=== PATIENT | male | born 1995 | race Caucasian/White ===

== ENCOUNTER 2017-01-03 10:12 | Emergency (ER) | payer OTHER ==
[2017-01-03 10:25] VITALS: TEMP 97.7; BMI 27.3
--- NOTE | 2017-01-03 10:47 | PDOC ---
History of Present Illness - General Chief Complaint: Syncope/Near Syncope Stated Complaint: Near Syncope/FALL Time Seen by Provider: 01/03/17 10:21 - History of Present Illness Initial Comments: 01/03/17 10:35 CHIEF COMPLAINT: near syncope HISTORY OF PRESENT ILLNESS: 21 yo M with no PMH presents to ED s/p suspected near syncope. 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 When I woke up, my leg had fallen asleep so when I got up, I was unstable because I didn't realize it had gone numb. I feel totally fine now." He admits to drinking "a little last night, like early in the evening." No recent travel or sick contacts. PAST MEDICAL HISTORY: Denies past medical history FAMILY HISTORY: Denies SOCIAL HISTORY:Denies tobacco, alcohol, illicit drug use. SURGICAL HISTORY: Denies ALLERGIES: No known drug allergies REVIEW OF SYSTEMS General/Constitutional: Denies fever or chills. Denies weakness, weight change. HEENT: Denies change in vision. Denies ear pain or discharge. Denies sore throat. Cardiovascular: Denies chest pain or shortness of breath. Respiratory: Denies cough, wheezing, or hemoptysis. Gastrointestinal: Denies nausea, vomiting, diarrhea or constipation. Denies rectal bleeding. Genitourinary: Denies dysuria, frequency, or change in urination. Musculoskeletal: Denies joint or muscle swelling or pain. Denies neck or back pain. Skin and breasts: Denies rash or easy bruising. Neurologic: Denies headache, vertigo, loss of consciousness, or loss of sensation. PHYSICAL EXAM General Appearance: Well-appearing, appropriately dressed. No apparent distress. HEENT: EOMI, PERRLA, normal ENT inspection, normal voice, TMs normal, pharynx normal. No conjunctival pallor. No photophobia, scleral icterus. Neck: Supple. Trachea midline. No tenderness, rigidity, carotid bruit, stridor , lymphadenopathy, or thyromegaly. Respiratory/Chest: Lungs CTAB. No shortness of breath, chest tenderness, respiratory distress, accessory muscle use. No crackles, rales, rhonchi, stridor , wheezing, dullness Cardiovascular: RRR. S1, S2. No JVD, murmur, bradycardia, tachycardia. Gastrointestinal/Abdominal: Normal bowel sounds. Abdomen soft, non-distended. No tenderness or rebound tenderness. No organomegaly, pulsatile mass, guarding , hernia, hepatomegaly, splenomegaly. Lymphatic: No adenopathy, tenderness. Musculoskeletal/Extremities: Normal inspection. FROM of all extremities, normal capillary refill. Pelvis Stable. No CVA tenderness. No tenderness to extremities, pedal edema, swelling, erythema or deformity. Integumentary: Appropriate color, dry, warm. 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 Fully oriented, alert. Appropriate mood/affect. Motor strength 5/5. No appreciable EOM palsy, facial droop or sensory deficit. 01/03/17 10:50 Past History - Past Medical History Allergies/Adverse Reactions: Allergies Allergy/AdvReac Type Severity Reaction Status Date / Time No Known Allergies Allergy Verified 01/03/17 10:25 Thyroid Disease: No - Psycho/Social/Smoking Cessation Hx Anxiety: No Suicidal Ideation: No Smoking History: Never smoked Have you smoked in the past 12 months: No Information on smoking cessation initiated: No Hx Alcohol Use: No Drug/Substance Use Hx: No Substance Use Type: None *Physical Exam - Vital Signs Last Vital Signs Temp Pulse Resp BP Pulse Ox 97.7 F 88 18 160/91 100 01/03/17 10:12 01/03/17 10:12 01/03/17 10:12 01/03/17 10:12 01/03/17 10:12 Medical Decision Making - Medical Decision Making 01/03/17 10:47 21 yo M with no PMH presents to ED s/p suspected near syncope. Patient has no complaints at this time and exam is unremarkable. Will discharge to home with instructions for follow up. *DC/Admit/Observation/Transfer Diagnosis at time of Disposition: Sleep deprivation - Discharge Dispostion Disposition: HOME Condition at time of disposition: Stable Admit: No - Patient Instructions Printed Discharge Instructions: Shift Workers: [facility] for Sleep Problems Additional Instructions: Please continue to drink plenty of fluids and keep hydrated. Try to get more sleep in order to avoid situations like this. I have given you a work note so you can get some rest over the next 2 days. If you experience any dizziness, nausea, vomiting, diarrhea, headache, shortness of breath, or any new or worsening symptoms, please return to the ER. - Post Discharge Activity Work/School Note: Back to Work
[2017-01-03 11:25] VITALS: BP 121/74; PULSE 91
--- NOTE | 2017-01-03 14:19 | RAPID ---
Physical Examination Vital Signs: Vital Signs Temperature 97.7 F 01/03/17 10:12 Pulse Rate 91 H 01/03/17 11:25 Respiratory Rate 18 01/03/17 11:25 Blood Pressure 121/74 01/03/17 11:25 O2 Sat by Pulse Oximetry (%) 99 01/03/17 11:25 Rapid Response - Rapid Response Assessment: Rapid response called. Patient was in the bathroom and saw him walking into the bathroom with an abnormal gait. An RN then heard a loud noise in the bathroom and when they opened the door, patient was found slumped over. Patient was placed on a stretcher but was responsive and verbal. He reports he was feeling dizzy and very tired. Patient states he was resting his head down and fell asleep. He does admit to not eating in the last 24 hours. Otherwise, patient denies any history of seizures or similar episodes. He denies any medical problems or history of medical problems. On Physical Exam patient was diaphoretic, tachycardic with dilated pupils. Lungs were clear Vitals revealed a BP of 180/113. Patient was sent down to the ED for further monitoring and work up.
== END 2017-01-03 11:26 | disposition home or self-care (01) ==
LOC: JER 10:12
DX: Z72.820 Sleep deprivation (principal)
CPT/HCPCS: 99283-25; 99284-25